=== PATIENT | female | born 1955 | race Caucasian/White ===

== ENCOUNTER 2017-04-19 11:02 | Outpatient (CLI) | payer BC ==
[2017-04-19 12:14] LABS: #Basophils 0.1 thou/uL (0.0-0.2); #Eosinphils 0.1 thou/uL (0.0-0.7); #Lymphocytes 1.9 thou/uL (1.20-3.40); #Monocytes 0.5 thou/uL (0.11-0.59); #Neutrophils 2.9 thou/uL (1.40-6.50); %Basophils 1.2 % (0.0-1.0); %Eosinophils 1.8 % (0.0-10.0); %Lymphocytes 34.4 % (21.0-51.0); %Monocytes 9.1 % (0.0-10.0); Hematocrit 41.1 % (36.0-47.0); Mean Platelet Volume 9.6 fL (7.4-10.4); Red Blood Cell (RBC) Count 4.32 mill/uL (4.20-5.40); White Blood Cell (WBC) Count 5.5 thou/uL (4.8-10.8)
[2017-04-19 12:36] LABS: Anion Gap 7 mmol/L (10-20); BUN (Urea Nitrogen) 19 mg/dL (9.8-20.1); Calc. Creatinine Clearance 0 mL/min (70-130); Calcium 9.7 mg/dL (7.8-10.44); Carbon Dioxide 34 mmol/L (23-31); Chloride 104 mmol/L (98-107); Estimated GFR-MDRD 77
== END 2017-04-19 11:03 | disposition home or self-care (01) ==
LOC: LABBT 11:02
PROVIDERS: ATTEND Surgery
DX: Z01.812 Encounter for preprocedural laboratory examination (principal); K60.2 Anal fissure, unspecified
CPT/HCPCS: 80048; 85025

== ENCOUNTER 2017-04-20 09:23 | Day surgery (SDC) | payer BC ==
[2017-04-19 11:18] VITALS: BMI 21.4
[2017-04-20] MEDS ORDERED: CEFAZOLIN/Water 2 GM/20 ML SYRINGE ONE (10:02)
[2017-04-20] MEDS ORDERED: Ketorolac Tromethamine 30 MG/ML VIAL ONE (10:03)
[2017-04-20] MEDS ORDERED: Fentanyl 100 MCG/2 ML VIAL ONE (11:04)
[2017-04-20] MEDS ORDERED: Bupivacaine 0.25% HCL 30 ML VIAL ONE (11:04)
[2017-04-20] MEDS ORDERED: metroNIDAZOLE 500 MG/100 ML BAG ONE (11:07)
[2017-04-20] MEDS ORDERED: Dexamethasone 20 MG/5 ML VIAL ONE (11:30)
[2017-04-20] MEDS ORDERED: Ondansetron HCl/PF 4 MG/2 ML Vial ONE (11:30)
[2017-04-20] MEDS ORDERED: Lidocaine 1% PF 5 ML VIAL ONE (11:30)
[2017-04-20] MEDS ORDERED: Glycopyrrolate 0.2 MG/ML 5 ML SYRINGE ONE (11:30)
[2017-04-20] MEDS ORDERED: Propofol 200 MG/20 ML VIAL ONE (11:30)
--- NOTE | 2017-04-25 09:26 | PDOC.OP ---
Operative Note - Operative Note Operative Note: PROCEDURE: Exam under anesthesia and lateral internal sphincterotomy DATE OF PROCEDURE: 04/20/2017 SURGEON: oDugie Yang M.D. PREOPERATIVE DIAGNOSES: External hemorrhoids and anal fissure POSTOPERATIVE DIAGNOSIS: External hemorrhoids and anal fissure HISTORY: Patient is a 61-year-old woman with long-standing constipation and chronic external hemorrhoids who has had acute worsening of anal pain exacerbated by bowel movements. Her electron gun inspector diagnosed an anal fissure and prescribed nitroglycerin ointment but her symptoms have not improved with this. She and her family have decided to proceed with lateral internal sphincterotomy, with plans to address the external hemorrhoids at a later date if her symptoms are not adequately controlled. PROCEDURE IN DETAIL: After informed consent was obtained and appropriate preoperative antibiotics administered the patient was taken to the operating. She was placed in supine position and anesthesia was administered. She was then placed in lithotomy position and prepped and draped in standard sterile fashion. 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 She had circumferential external hemorrhoids with a moderate internal component. The intersphincteric groove was easily palpable. An incision was made over the intersphincteric groove and the internal sphincter muscle fibers elevated with a right angle clamp through the incision and divided with electrocautery until the entire internal sphincter muscle was felt to be by palpation. Hemostasis was verified and the incision closed with chromic suture leaving a small portion open to drain. The patient was extubated and taken to the recovery room in good condition. Estimated blood loss was minimal. There were no complications. There were no specimens
== END 2017-04-20 14:15 | disposition home or self-care (01) ==
LOC: SDC 09:23
PROVIDERS: ATTEND Surgery
PROC: 0D8R0ZZ Division of Anal Sphincter, Open Approach (ICD-10-PCS; principal; 2017-04-20)
DX: K60.2 Anal fissure, unspecified (principal); K64.4 Residual hemorrhoidal skin tags; M32.9 Systemic lupus erythematosus, unspecified; G30.9 Alzheimer's disease, unspecified; F02.80 Dementia in other diseases classified elsewhere, unspecified severity, without behavioral disturbance, psychotic disturbance, mood disturbance, and anxiety; Z79.899 Other long term (current) drug therapy; Z98.890 Other specified postprocedural states
CPT/HCPCS: J1100; J1885; J2001; J2405; J2704; J3010; S0020